=== PATIENT | male | born 1950 | race Caucasian/White ===

== ENCOUNTER → 2017-09-07 | Outpatient (CLI) | payer MEDICARE, OTHER ==
[~2017-09-07] MED LIST: ALEVE 220MG220 MG PO; ASPIRIN E.C. 8181 MG PO; CALCIUM500 MG PO; CENTRUM SILVER1 TA2 PO; CLARINEX 5MG5 MG PO; CYMBALTA 60MG60 MG PO; ELIDEL CREAM15 GM TP; FOSAMAX 70MG TA70 MG PO; HCTZ 25MG TAB25 MG PO; HYGROTON25 MG PO; MULTIPLE VITAMI1 CAP PO; PRIL40; RAPAFLO8 MG PO; SONATA 10MG10 MG PO; TOPROL XL200 MG PO; VITAMIN B121000 MCG PO; VITAMIN C500 MG PO; VITAMIN D32000 IU PO; XANAX .25M0.25 MG/TA; ZESTRIL 10MG10 MG PO; ZESTRIL 20MG TA20 MG PO
== END ==
LOC: COL.PUL 07:53
DX: C81.90 Hodgkin lymphoma, unspecified, unspecified site (principal); I08.1 Rheumatic disorders of both mitral and tricuspid valves

== ENCOUNTER 2017-09-12 08:42 | Day surgery (SDC) | payer MEDICARE, OTHER ==
[~2017-09-12] VITALS: Ht 182.9 cm; Wt 86.9 kg
[2017-09-12 08:57] VITALS: BP 123/73; PULSE 103; TEMP 99.2
[2017-09-12] MEDS ORDERED: CRESTOR5 MG PO (09:35)
[2017-09-12] MEDS ORDERED: EMERGEN-C IMM1000 MG PO (09:36)
[2017-09-12] MEDS ORDERED: TRIAM OI 0.1 454 TOP (09:36)
[2017-09-12 11:29] VITALS: BP 102/64; PULSE 86; TEMP 97
[2017-09-12 11:44] VITALS: BP 95/60; PULSE 87
[2017-09-12 11:59] VITALS: BP 92/57; PULSE 85
[2017-09-12] MEDS ORDERED: COLACE 100100 MG/CAP PO (12:11)
[2017-09-12] MEDS ORDERED: NORCO 325 MG-51 TAB PO (12:11)
[2017-09-12] MEDS ORDERED: MOTRIN 600600 MG/TAB PO (12:12)
[2017-09-12 12:14] VITALS: BP 87/50; PULSE 84
[2017-09-12 12:34] VITALS: BP 88/46; PULSE 88
== END 2017-09-12 12:45 | disposition home or self-care (01) ==
LOC: SDCO 08:42
DX: C81.11 Nodular sclerosis Hodgkin lymphoma, lymph nodes of head, face, and neck (principal); Z80.9 Family history of malignant neoplasm, unspecified; I10 Essential (primary) hypertension; E78.00 Pure hypercholesterolemia, unspecified
CPT/HCPCS: C1788; J0690; J1644; J1885; J2250; J2405; J2704; J3010; J7120

== ENCOUNTER → 2018-01-08 | Outpatient (CLI) | payer MEDICARE, OTHER ==
[~2018-01-08] MED LIST changes: +COLACE 100100 MG/CAP PO; +CRESTOR5 MG PO; +EMERGEN-C IMM1000 MG PO; +MOTRIN 600600 MG/TAB PO; +NORCO 325 MG-51 TAB PO; +TRIAM OI 0.1 454 TOP
== END ==
LOC: COL.PUL 08:38
DX: C81.90 Hodgkin lymphoma, unspecified, unspecified site (principal)

== ENCOUNTER → 2018-03-07 | Outpatient (CLI) | payer MEDICARE, OTHER | LOC: COL.RAD 10:19 | DX: C81.18 Nodular sclerosis Hodgkin lymphoma, lymph nodes of multiple sites (principal); R22.1 Localized swelling, mass and lump, neck; N32.89 Other specified disorders of bladder; N28.89 Other specified disorders of kidney and ureter; Z95.828 Presence of other vascular implants and grafts | CPT/HCPCS: Q9967 ==

== ENCOUNTER → 2018-06-21 | Outpatient (CLI) | payer MEDICARE, OTHER | LOC: COL.RAD 07:18 | DX: N13.39 Other hydronephrosis (principal) | CPT/HCPCS: Q9967 ==

== ENCOUNTER → 2018-07-16 | Outpatient (CLI) | payer MEDICARE, OTHER | LOC: COL.RAD 11:40 | DX: N13.4 Hydroureter (principal); N13.39 Other hydronephrosis; N31.2 Flaccid neuropathic bladder, not elsewhere classified | CPT/HCPCS: A9562 ==

== ENCOUNTER → 2019-03-25 | Outpatient (CLI) | payer MEDICARE, OTHER | LOC: COL.RAD 03-06 08:30 | DX: C81.18 Nodular sclerosis Hodgkin lymphoma, lymph nodes of multiple sites (principal); N32.89 Other specified disorders of bladder; N13.30 Unspecified hydronephrosis; Z95.9 Presence of cardiac and vascular implant and graft, unspecified | CPT/HCPCS: J1644; Q9967 ==

== ENCOUNTER → 2019-07-11 | Outpatient (CLI) | payer MEDICARE, OTHER | LOC: COL.RAD 07-08 10:00 | DX: C81.18 Nodular sclerosis Hodgkin lymphoma, lymph nodes of multiple sites (principal); M47.812 Spondylosis without myelopathy or radiculopathy, cervical region; N13.30 Unspecified hydronephrosis; N28.82 Megaloureter; N26.1 Atrophy of kidney (terminal); N40.0 Benign prostatic hyperplasia without lower urinary tract symptoms | CPT/HCPCS: Q9967 ==

== ENCOUNTER → 2019-10-08 | Outpatient (CLI) | payer MEDICARE, OTHER | LOC: COL.RAD 09:16 | DX: C81.18 Nodular sclerosis Hodgkin lymphoma, lymph nodes of multiple sites (principal); N28.89 Other specified disorders of kidney and ureter; N32.89 Other specified disorders of bladder; Z95.9 Presence of cardiac and vascular implant and graft, unspecified | CPT/HCPCS: J1644; Q9967 ==

== ENCOUNTER 2021-04-03 06:38 | Emergency (ER) | payer MEDICARE, OTHER ==
[~2021-04-03] VITALS: Ht 182.9 cm; Wt 102.3 kg
[2021-04-03 06:47] VITALS: TEMP 99.2
[2021-04-03 07:56] LABS: BASO # 0.1 (0.0-0.2); BASO % 0.3 % (0.0-2.0); EOS % 0.1 % (0-4.0); GRAN # 17.6 (1.4-6.5); HEMATOCRIT 43.6 % (42.0-52.0); HEMOGLOBIN 15.1 g/dl (13.5-18.0); LYMPH # 0.8 (1.2-3.4); LYMPH % 3.8 % (20.0-51.0); MEAN CELL VOLUME 89 fl (80.0-100.0); MEAN CORPUSCULAR HEMOGLOBIN 31 pg (27.0-31.0); MEAN CORPUSCULAR HGB CONC 35 g/dl (33.0-37.0); MEAN PLATELET VOLUME 9.6 fl (7.4-10.4); MONO # 1.5 (0.1-0.6); MONO % 7.2 % (1.7-9.3); PLATELET COUNT 173 K/mm3 (130-400); REDCELL DISTRIBUTION WIDTH-CV 13.3 % (11.5-14.5)
[2021-04-03 07:59] LABS: COLLECTION METHOD CLEAN CATCH
[2021-04-03 08:07] LABS: ALBUMIN 4.1 gm/dL (3.5-5.0); BILIRUBIN,TOTAL 0.8 mg/dL (0.0-1.0); C-REACTIVE PROTEIN 3.7 mg/dL (0.0-0.9); CALCIUM 9.1 mg/dL (8.4-10.2); CREATININE, serum 0.94 (0.66-1.25); POTASSIUM 4.1 mmol/L (3.4-5.0)
[2021-04-03 08:23] LABS: MUCOUS Present /lpf; PH 6 (5-8); SQUAMOUS EPITHELIAL 0-2 /hpf; URINE APPEARANCE Cloudy; URINE BACTERIA Moderate /hpf; URINE BILIRUBIN Negative (NEGATIVE); URINE BLOOD 3+ (NEGATIVE); URINE COLOR Yellow; URINE GLUCOSE Negative (NEGATIVE); URINE KETONE Negative (NEGATIVE); URINE LEUKOCYTE ESTERASE 1+ (NEGATIVE); URINE NITRATE Negative (NEGATIVE); URINE PROTEIN(semi-quant) 2+ (NEGATIVE); URINE RBC >50 /hpf; URINE UROBILINOGEN Negative (NEGATIVE)
[2021-04-03] MEDS ORDERED: OMNICEF 300MG300 MG PO (09:36)
[2021-04-03 09:50] VITALS: BP 120/74; PULSE 95
== END 2021-04-03 09:50 | disposition home or self-care (01) ==
LOC: COL.ER 06:38
PROVIDERS: Family Medicine
DX: N39.0 Urinary tract infection, site not specified (principal); D72.829 Elevated white blood cell count, unspecified; I10 Essential (primary) hypertension; E78.5 Hyperlipidemia, unspecified; Z79.899 Other long term (current) drug therapy
CPT/HCPCS: J0696; J7120

== ENCOUNTER → 2023-10-10 | Outpatient (CLI) | payer MEDICARE, OTHER ==
[~2023-10-10] MED LIST changes: +Iohexol 300 - 100 ML VIAL IV ONE; +NS 100 ML IV SCH; +OMNICEF 300MG300 MG PO
== END ==
LOC: CANSCHCLI → COL.RAD 12:43
DX: C81.18 Nodular sclerosis Hodgkin lymphoma, lymph nodes of multiple sites (principal)
CPT/HCPCS: J1644; Q9967